=== PATIENT | female | born 1960 | race Native Hawaiian/Other Pacific Islander ===

== ENCOUNTER 2022-12-03 14:00 | Outpatient (CLI) | payer OTHER | END 2022-12-03 20:51 | disposition home or self-care (01) | LOC: RAD 14:00 | PROVIDERS: ATTEND Physician Assistant | DX: M25.562 Pain in left knee (principal) ==

== ENCOUNTER 2023-02-27 08:27 | Outpatient (CLI) | payer OTHER | END 2023-02-27 19:18 | disposition home or self-care (01) | LOC: MRI 08:27 | PROVIDERS: ATTEND Physician Assistant | DX: M43.16 Spondylolisthesis, lumbar region (principal) ==